=== PATIENT | female | born 1960 | race Caucasian/White ===

== ENCOUNTER 2018-03-01 12:25 | Outpatient (REF) | payer BC, SELFPAY ==
[2018-03-01 21:41] LABS: COMMENT (LAB VIEW ONLY) 16.86 mg/dL; Microalb ug/mg Crea 21.4 ug/mg Cr
== END 2018-03-01 12:45 ==
LOC: NCHCN 12:25
PROVIDERS: PCP Internal Medicine; Visit Provider Internal Medicine
DX: E11.9 Type 2 diabetes mellitus without complications (principal)
CPT/HCPCS: 82043; 82570

== ENCOUNTER 2019-01-10 22:23 | Outpatient (REF) | payer BC, SELFPAY ==
[2019-01-10 22:37] LABS: TSH 0.41 uIU/mL (0.36-3.74)
== END 2019-01-10 22:43 ==
LOC: NCHCN 22:23
PROVIDERS: PCP Internal Medicine; Visit Provider Internal Medicine
DX: L11.1 Transient acantholytic dermatosis [Grover] (principal)
CPT/HCPCS: 84443

== ENCOUNTER 2019-06-06 12:17 | Outpatient (REF) | payer BC, SELFPAY ==
[2019-06-06 21:43] LABS: Hemoglobin A1C 8.8 % (3.8-5.6)
[2019-06-06 21:49] LABS: Anion Gap 12.7 mmol/L (3-11); BUN 15 mg/dL (7-18); CO2 27.3 mmol/L (21.0-32.0); CREATININE 0.73 mg/dL (0.55-1.02); Calcium 9.9 mg/dL (8.5-10.1); Calculated LDL 178 mg/dL (<100); Chloride 99 mmol/L (98-107); Cholesterol 275 mg/dL (<200); Glucose 219 mg/dL (74-106); HDL Cholesterol 55 mg/dL (40-60); Potassium 4.7 mmol/L (3.5-5.1); Sodium 139 mmol/L (136-145); Triglyceride 212 mg/dL (<150)
== END 2019-06-06 12:37 ==
LOC: NCHCN 12:17
PROVIDERS: PCP Internal Medicine; Visit Provider Internal Medicine
DX: E11.9 Type 2 diabetes mellitus without complications (principal); L11.1 Transient acantholytic dermatosis [Grover]; Z13.220 Encounter for screening for lipoid disorders
CPT/HCPCS: 80048; 80061; 83036

== ENCOUNTER 2020-01-20 19:50 | Outpatient (REF) | payer BC, SELFPAY ==
[2020-01-20 21:33] LABS: COMMENT (LAB VIEW ONLY) 90.51 mg/dL
[2020-01-20 21:35] LABS: Microalb ug/mg Crea 302.6 ug/mg Cr
== END 2020-01-20 20:10 ==
LOC: NCHCN 19:50
PROVIDERS: PCP Internal Medicine; Visit Provider Internal Medicine
DX: E11.9 Type 2 diabetes mellitus without complications (principal)
CPT/HCPCS: 82043; 82570

== ENCOUNTER → 2020-04-04 09:37 | Outpatient (REF) | payer BC, SELFPAY ==
[2020-04-04 22:40] LABS: Hemoglobin A1C 10.5 % (<5.7)
[2020-04-04 23:20] LABS: ALT 34 U/L (14-59); AST 13 U/L (15-37); Albumin 4.5 g/dL (3.4-5.0); Alkaline Phosphatase 123 U/L (46-116); Anion Gap 14.5 mmol/L (3-11); BUN 11 mg/dL (7-18); Bilirubin, Total 0.3 mg/dL (0.2-1.0); CO2 23.5 mmol/L (21.0-32.0); CREATININE 0.85 mg/dL (0.55-1.02); Calcium 9.5 mg/dL (8.5-10.1); Calculated LDL 96 mg/dL (<100); Chloride 100 mmol/L (98-107); Cholesterol 164 mg/dL (<200); Glucose 411 mg/dL (74-106); HDL Cholesterol 44 mg/dL (40-60); Potassium 4.2 mmol/L (3.5-5.1); Sodium 138 mmol/L (136-145); TSH 0.18 uIU/mL (0.36-3.74); Total Protein 7.7 g/dL (6.4-8.2); Triglyceride 124 mg/dL (<150)
== END ==
LOC: NCHCN 09:37
PROVIDERS: PCP Internal Medicine; Visit Provider Internal Medicine
DX: E78.5 Hyperlipidemia, unspecified (principal); E03.9 Hypothyroidism, unspecified; E11.9 Type 2 diabetes mellitus without complications
CPT/HCPCS: 80053; 80061; 83036; 84443

== ENCOUNTER 2020-06-25 16:44 | Outpatient (REF) | payer BC, SELFPAY ==
[2020-06-25 21:35] LABS: FREE T4 1.15 ng/dL (0.76-1.46); TSH 0.01 uIU/mL (0.36-3.74)
[2020-06-25 21:47] LABS: Hemoglobin A1C 10.8 % (<5.7)
== END 2020-06-25 16:45 | disposition home or self-care (01) ==
LOC: NCHCN 16:44
PROVIDERS: PCP Internal Medicine; Visit Provider Internal Medicine
DX: L11.1 Transient acantholytic dermatosis [Grover] (principal); E11.9 Type 2 diabetes mellitus without complications
CPT/HCPCS: 83036; 84439; 84443

== ENCOUNTER 2020-07-02 20:44 | Outpatient (REF) | payer BC, SELFPAY ==
[2020-07-02 21:24] LABS: COMMENT (LAB VIEW ONLY) 17.95 mg/dL; Microalb ug/mg Crea 17.3 ug/mg Cr
== END 2020-07-02 20:45 | disposition home or self-care (01) ==
LOC: NCHCN 20:44
PROVIDERS: PCP Internal Medicine; Visit Provider Internal Medicine
DX: E11.9 Type 2 diabetes mellitus without complications (principal)
CPT/HCPCS: 82043; 82570

== ENCOUNTER 2021-04-22 17:27 | Outpatient (REF) | payer BC, SELFPAY ==
[2021-04-22 21:29] LABS: HCT 45.5 % (36.0-46.0); HGB 14.9 g/dL (11.2-15.7); MCH 31.1 pg (27.0-33.0); MCHC 32.7 % (32.0-36.0); MPV 10.2 fL (8.0-11.0); Platelet Count 474 10^3/uL (130-400); RBC 4.79 10^6/uL (3.93-5.22); RDW 12.4 % (11.7-14.6); RDW-SD 43.9 fL; WBC 12.38 10^3/uL (4.4-10.8)
[2021-04-22 21:49] LABS: ALT 35 U/L (14-59); AST 13 U/L (15-37); Albumin 4.8 g/dL (3.4-5.0); Alkaline Phosphatase 146 U/L (46-116); Anion Gap 10.1 mmol/L (3-11); BUN 12 mg/dL (7-18); Bilirubin, Total 0.2 mg/dL (0.2-1.0); CO2 28.9 mmol/L (21.0-32.0); CREATININE 0.7 mg/dL (0.55-1.02); Calcium 9.7 mg/dL (8.5-10.1); Chloride 98 mmol/L (98-107); Glucose 268 mg/dL (74-106); Lipase 121 U/L (73-393); Sodium 137 mmol/L (136-145); TSH (W/Ref FT4) 2.22 uIU/mL (0.36-3.74); Total Protein 8.4 g/dL (6.4-8.2)
[2021-04-23 15:49] LABS: GGT 96 U/L (5-55)
[2021-04-25 00:51] LABS: Vitamin D 25 Total 26.4 ng/mL (30-100)
== END 2021-04-22 17:28 | disposition home or self-care (01) ==
LOC: NCHCN 17:27
PROVIDERS: PCP Internal Medicine; Visit Provider Internal Medicine
DX: R74.8 Abnormal levels of other serum enzymes (principal); F32.9 Major depressive disorder, single episode, unspecified; F41.9 Anxiety disorder, unspecified; E11.9 Type 2 diabetes mellitus without complications; E78.5 Hyperlipidemia, unspecified; E05.90 Thyrotoxicosis, unspecified without thyrotoxic crisis or storm; R11.0 Nausea
CPT/HCPCS: 80053; 82306; 83690; 85027; 82977; 84443

== ENCOUNTER 2021-06-19 20:52 | Outpatient (REF) | payer BC, SELFPAY ==
[2021-06-19 22:23] LABS: ALT 40 U/L (14-59); AST 23 U/L (15-37); Alkaline Phosphatase 147 U/L (46-116); Anion Gap 14.4 mmol/L (3-11); BUN 9 mg/dL (7-18); Bilirubin, Total 0.2 mg/dL (0.2-1.0); CO2 23.6 mmol/L (21.0-32.0); CREATININE 0.7 mg/dL (0.55-1.02); Calcium 9.2 mg/dL (8.5-10.1); Chloride 100 mmol/L (98-107); Glucose 290 mg/dL (74-106); Potassium 4.1 mmol/L (3.5-5.1); Sodium 138 mmol/L (136-145)
== END 2021-06-19 20:53 | disposition home or self-care (01) ==
LOC: NCHCN 20:52
PROVIDERS: PCP Internal Medicine; Visit Provider Internal Medicine
DX: R11.0 Nausea (principal)
CPT/HCPCS: 80053

== ENCOUNTER 2021-11-20 15:27 | Outpatient (REF) | payer BC, SELFPAY ==
[2021-11-20 22:06] LABS: COMMENT (LAB VIEW ONLY) 63.07 mg/dL; Microalb ug/mg Crea 37.7 ug/mg Cr
== END 2021-11-20 15:28 | disposition home or self-care (01) ==
LOC: NCHCN 15:27
PROVIDERS: PCP Internal Medicine; Visit Provider Internal Medicine
DX: E11.9 Type 2 diabetes mellitus without complications (principal)
CPT/HCPCS: 82043; 82570

== ENCOUNTER 2022-06-12 17:02 | Outpatient (REF) | payer BC, SELFPAY ==
[2022-06-12 21:09] LABS: HCT 40.5 % (36.0-46.0); HGB 13.6 g/dL (11.2-15.7); MCH 31.1 pg (27.0-33.0); MCHC 33.6 % (32.0-36.0); MCV 93 fL (80-95); MPV 9.9 fL (8.0-11.0); Platelet Count 488 10^3/uL (130-400); RBC 4.38 10^6/uL (3.93-5.22); RDW 12.3 % (11.7-14.6); RDW-SD 41.9 fL; WBC 11.84 10^3/uL (4.4-10.8)
[2022-06-12 21:28] LABS: ALT 26 U/L (14-59); AST 13 U/L (15-37); Albumin 4.3 g/dL (3.4-5.0); Alkaline Phosphatase 111 U/L (46-116); Anion Gap 7.7 mmol/L (3-11); BUN 16 mg/dL (7-18); Bilirubin, Total 0.4 mg/dL (0.2-1.0); CO2 30.3 mmol/L (21.0-32.0); CREATININE 0.8 mg/dL (0.55-1.02); Calcium 9.8 mg/dL (8.5-10.1); Chloride 100 mmol/L (98-107); Estimated GFR 84.82 (mL/min/1.73m2); Glucose 254 mg/dL (74-106); Potassium 4.4 mmol/L (3.5-5.1); Sodium 138 mmol/L (136-145); Total Protein 7.6 g/dL (6.4-8.2)
[2022-06-12 21:59] LABS: Hemoglobin A1C 8.6 % (<5.7)
[2022-06-12 22:19] LABS: Vitamin D 25 Total 24.9 ng/mL (30-100)
== END 2022-06-12 17:03 | disposition home or self-care (01) ==
LOC: NCHCN 17:02
PROVIDERS: PCP Internal Medicine; Visit Provider Internal Medicine
DX: E11.9 Type 2 diabetes mellitus without complications (principal); K76.0 Fatty (change of) liver, not elsewhere classified; F32.9 Major depressive disorder, single episode, unspecified; F41.9 Anxiety disorder, unspecified; Z86.39 Personal history of other endocrine, nutritional and metabolic disease
CPT/HCPCS: 80053; 82306; 85027; 83036

== ENCOUNTER 2022-12-31 20:29 | Outpatient (REF) | payer BC, SELFPAY ==
[2022-12-31 20:56] LABS: Abs Immature Grans 0.03 10^3/uL (0.0-0.06); Absolute Lymphocyte Count 3.11 10^3/uL (1.2-3.4); Absolute Monocyte Count 0.84 10^3/uL (0.1-0.8); Absolute Neutrophil Count 5.45 10^3/uL (1.2-6.7); HCT 40.4 % (36.0-46.0); HGB 13.8 g/dL (11.2-15.7); Immature Grans % 0.3; Lymphocytes % 32.3; MCH 30.8 pg (27.0-33.0); MCHC 34.2 % (32.0-36.0); MCV 90 fL (80-95); MPV 10.2 fL (8.0-11.0); Monocytes % 8.7; Neutrophils % 56.7; Platelet Count 468 10^3/uL (130-400); RBC 4.48 10^6/uL (3.93-5.22); RDW 12.5 % (11.7-14.6); RDW-SD 41.5 fL; WBC 9.63 10^3/uL (4.4-10.8)
[2022-12-31 21:29] LABS: ALT 18 U/L (14-59); AST 15 U/L (15-37); Albumin 4.2 g/dL (3.4-5.0); Alkaline Phosphatase 103 U/L (46-116); Anion Gap 8.6 mmol/L (3-11); BUN 20 mg/dL (7-18); Bilirubin, Total 0.4 mg/dL (0.2-1.0); CO2 30.4 mmol/L (21.0-32.0); CREATININE 1.1 mg/dL (0.55-1.02); Calcium 9.1 mg/dL (8.5-10.1); Chloride 96 mmol/L (98-107); Estimated GFR 57.52 (mL/min/1.73m2); Ferritin 92 ng/mL (8-252); Folate 18.4 ng/mL (8.6-20.0); Glucose 307 mg/dL (74-106); Magnesium 1.6 mg/dL (1.8-2.4); Potassium 3.8 mmol/L (3.5-5.1); Sodium 135 mmol/L (136-145); TSH (W/Ref FT4) 4.69 uIU/mL (0.36-3.74); Total Protein 7.7 g/dL (6.4-8.2)
[2022-12-31 21:34] LABS: Vitamin D 25 Total 23.7 ng/mL (30-100)
== END 2022-12-31 20:30 | disposition home or self-care (01) ==
LOC: NCHCN 20:29
PROVIDERS: PCP Internal Medicine; Visit Provider Internal Medicine
DX: E55.9 Vitamin D deficiency, unspecified (principal); R63.4 Abnormal weight loss; M79.604 Pain in right leg; M79.605 Pain in left leg; M62.838 Other muscle spasm; E11.9 Type 2 diabetes mellitus without complications; K76.0 Fatty (change of) liver, not elsewhere classified
CPT/HCPCS: 80053; 82306; 82728; 82746; 83735; 84439; 84443; 85025

== ENCOUNTER 2023-02-09 15:36 | Outpatient (REF) | payer BC, SELFPAY ==
[2023-02-09 22:14] LABS: COMMENT (LAB VIEW ONLY) 53.26 mg/dL; Microalb ug/mg Crea 49.2 ug/mg Cr
== END 2023-02-09 15:37 | disposition home or self-care (01) ==
LOC: NCHCN 15:36
PROVIDERS: PCP Internal Medicine; Visit Provider Internal Medicine
DX: E11.9 Type 2 diabetes mellitus without complications (principal)
CPT/HCPCS: 82043; 82570

== ENCOUNTER 2023-04-02 19:57 | Outpatient (REF) | payer BC, SELFPAY ==
[2023-04-02 22:12] LABS: FREE T4 1.02 ng/dL (0.76-1.46); Magnesium 1.8 mg/dL (1.8-2.4)
[2023-04-02 22:28] LABS: Vitamin D 25 Total 18.3 ng/mL (30-100)
== END 2023-04-02 19:58 | disposition home or self-care (01) ==
LOC: NCHCN 19:57
PROVIDERS: PCP Internal Medicine; Visit Provider Internal Medicine
DX: E05.90 Thyrotoxicosis, unspecified without thyrotoxic crisis or storm (principal); E11.9 Type 2 diabetes mellitus without complications; E83.42 Hypomagnesemia
CPT/HCPCS: 82306; 83036; 83735; 84439; 84443

== ENCOUNTER 2023-09-21 18:37 | Outpatient (REF) | payer MEDICARE, BC, SELFPAY ==
[2023-09-21 21:50] LABS: HGB 13.8 g/dL (11.2-15.7); MCH 29.8 pg (27.0-33.0); MCHC 32.1 % (32.0-36.0); MCV 93 fL (80-95); MPV 10.4 fL (8.0-11.0); Platelet Count 419 10^3/uL (130-400); RBC 4.63 10^6/uL (3.93-5.22); RDW 13.2 % (11.7-14.6); WBC 9.07 10^3/uL (4.4-10.8)
[2023-09-21 22:23] LABS: ALT 35 U/L (14-59); AST 19 U/L (15-37); Alkaline Phosphatase 219 U/L (46-116); Anion Gap 8.7 mmol/L (3-11); BUN 21 mg/dL (7-18); Bilirubin, Total 0.2 mg/dL (0.2-1.0); CO2 26.3 mmol/L (21.0-32.0); Calcium 9.3 mg/dL (8.5-10.1); Chloride 99 mmol/L (98-107); Estimated GFR 64.09 (mL/min/1.73m2); Potassium 5.2 mmol/L (3.5-5.1); Sodium 134 mmol/L (136-145); TSH 0.01 uIU/Ml (0.36-3.74); Total Protein 7.7 g/dL (6.4-8.2); Vitamin D 25 Total 35.4 ng/mL (30-100)
[2023-09-21 22:50] LABS: Glucose 535 mg/dL (74-106)
[2023-09-21 23:42] LABS: FREE T4 1.17 ng/dL (0.76-1.46)
== END 2023-09-21 18:38 | disposition home or self-care (01) ==
LOC: NCHCN 18:37
PROVIDERS: PCP Internal Medicine; Visit Provider Internal Medicine
DX: E11.9 Type 2 diabetes mellitus without complications (principal); E55.9 Vitamin D deficiency, unspecified; E05.90 Thyrotoxicosis, unspecified without thyrotoxic crisis or storm
CPT/HCPCS: 80053; 82306; 85027; 84439; 84443

== ENCOUNTER 2024-01-04 16:21 | Outpatient (REF) | payer MEDICARE, BC, SELFPAY ==
[2024-01-04 21:53] LABS: COMMENT (LAB VIEW ONLY) 26.19 mg/dL; Microalb ug/mg Crea 75.2 ug/mg Cr
[2024-01-04 21:57] LABS: FREE T4 2.01 ng/dL (0.76-1.46); TSH < 0.01 uIU/Ml (0.36-3.74)
== END 2024-01-04 16:22 | disposition home or self-care (01) ==
LOC: NCHCN 16:21
PROVIDERS: PCP Internal Medicine; Visit Provider Internal Medicine
DX: E05.90 Thyrotoxicosis, unspecified without thyrotoxic crisis or storm (principal); E11.9 Type 2 diabetes mellitus without complications
CPT/HCPCS: 82043; 82570; 84439; 84443

== ENCOUNTER 2024-04-08 20:37 | Outpatient (REF) | payer MEDICARE, BC, SELFPAY ==
[2024-04-08 21:36] LABS: TSH (W/Ref FT4) < 0.01 uIU/mL (0.36-3.74)
== END 2024-04-08 20:38 | disposition home or self-care (01) ==
LOC: NCHCN 20:37
PROVIDERS: PCP Internal Medicine; Visit Provider Internal Medicine
DX: E05.90 Thyrotoxicosis, unspecified without thyrotoxic crisis or storm (principal)
CPT/HCPCS: 84439; 84443

== ENCOUNTER 2024-07-13 22:17 | Outpatient (REF) | payer MEDICARE, BC, SELFPAY ==
[2024-07-13 22:42] LABS: HCT 48.1 % (36.0-46.0); HGB 15.5 g/dL (11.2-15.7); MCH 30.6 pg (27.0-33.0); MCHC 32.2 % (32.0-36.0); MCV 95 fL (80-95); MPV 10.4 fL (8.0-11.0); Platelet Count 400 10^3/uL (130-400); RBC 5.07 10^6/uL (3.93-5.22); RDW 14.6 % (11.7-14.6); RDW-SD 50.7 fL; WBC 10.55 10^3/uL (4.4-10.8)
[2024-07-13 22:54] LABS: ALT 27 U/L (14-59); AST 28 U/L (15-37); Albumin 4.2 g/dL (3.4-5.0); Alkaline Phosphatase 151 U/L (46-116); Anion Gap 5.9 mmol/L (3-11); BUN 18 mg/dL (7-18); Bilirubin, Total 0.3 mg/dL (0.2-1.0); CO2 28.1 mmol/L (21.0-32.0); CREATININE 1.1 mg/dL (0.55-1.02); Calcium 9.6 mg/dL (8.5-10.1); Calculated LDL 68 mg/dL (<100); Chloride 101 mmol/L (98-107); Cholesterol 155 mg/dL (<200); Estimated GFR 56.81 (mL/min/1.73m2); Glucose 316 mg/dL (74-106); HDL Cholesterol 76 mg/dL (>or=50); Potassium 5.1 mmol/L (3.5-5.1); Sodium 135 mmol/L (136-145); TSH 0.06 uIU/mL (0.36-3.74); Total Protein 8.3 g/dL (6.4-8.2); Triglyceride 57 mg/dL (<150)
[2024-07-14 19:14] LABS: T4, Free 1.5 ng/dL (0.8-2.2)
== END 2024-07-13 22:18 | disposition home or self-care (01) ==
LOC: NCHCN 22:17
PROVIDERS: PCP Internal Medicine; Visit Provider Internal Medicine
DX: E11.9 Type 2 diabetes mellitus without complications (principal)
CPT/HCPCS: 80053; 80061; 85027; 84439; 84443

== ENCOUNTER 2024-10-31 16:05 | Outpatient (REF) | payer MEDICARE, BC, SELFPAY ==
[2024-10-31 21:58] LABS: TSH 2.28 uIU/mL (0.36-3.74)
== END 2024-10-31 16:06 | disposition home or self-care (01) ==
LOC: NCHCN 16:05
PROVIDERS: PCP Internal Medicine; Visit Provider Internal Medicine
DX: E05.90 Thyrotoxicosis, unspecified without thyrotoxic crisis or storm (principal)
CPT/HCPCS: 84439; 84443